=== PATIENT | male | born 1985 | race American Indian/Alaskan Native ===

== ENCOUNTER 2019-03-28 21:10 | Emergency (ER) | payer BC ==
[2019-03-29] MEDS ORDERED: NACL 0.9% 1000 ML 1,000 ML IV ONE (01:37)
[2019-03-29] MEDS ORDERED: ZOFRAN IV ONE (01:38)
[2019-03-29] MEDS ORDERED: PEPCID IV ONE (01:38)
[2019-03-29 02:57] LABS: Hemoglobin 14.2 gm/dl (11.8-15.2); Red Blood Count 5.21 M/mm3 (3.65-5.03)
[2019-03-29 02:58] LABS: Alanine Aminotransferase 19 units/L (7-56); Albumin 3.9 g/dL (3.9-5); BUN/Creatinine Ratio 14; Basophils # (Auto) 0.1 K/mm3 (0.0-0.1); Basophils % (Auto) 0.5 % (0.0-1.8); Blood Urea Nitrogen 13 mg/dL (9-20); Calcium 9.6 mg/dL (8.4-10.2); Eosinophils % (Auto) 0.4 % (0.0-4.3); Hematocrit 42.8 % (35.5-45.6); Hemolysis Index 10; Lymphocytes # (Auto) 3.2 K/mm3 (1.2-5.4); Lymphocytes % (Auto) 31.5 % (13.4-35.0); Mean Corpuscular HGB Conc 33 % (32-34); Mean Corpuscular Volume 82 fl (84-94); Monocytes # (Auto) 0.7 K/mm3 (0.0-0.8); Monocytes % (Auto) 6.5 % (0.0-7.3); Platelet Count 392 K/mm3 (140-440); Red Cell Distribution Width 13.8 % (13.2-15.2)
--- NOTE | 2019-03-29 04:04 | Emergency Department Report ---
ED Abdominal Pain HPI - General Chief Complaint: Abdominal Pain Stated Complaint: Nausea, vomiting, diarrhea and abdominal pain Time Seen by Provider: 03/29/19 01:20 Source: patient - History of Present Illness Initial Comments: Patient is a 33-year-old -Surinamese male with no past medical history presents to the ED with complaint of acute onset of persistent epigastric and left upper quadrant pain. Persistent nausea and vomiting and diarrhea for the last 4 days. Patient states that the pain in the epigastric area is burning and sharp and that he keeps burping in between nausea and vomiting. Patient denies chest pain, shortness of breath, dizziness, hematuria, dysuria, urinary frequency and urgency, sore throat, headache, change in vision, lightheadedness or hematochezia. MD Complaint: abdominal pain, other (Nausea and vomiting) -: Sudden, days(s) (4) Location: LUQ, epigastric Radiation: none Migration to: no migration Severity: severe Severity scale (0 -10): 7 Quality: aching, sharp, burning Consistency: constant Improves With: nothing Worsens With: vomiting Context: possible food poisoning Associated Symptoms: nausea, vomiting. denies: diarrhea, fever, chills, constipation, dysuria, hematemesis, hematochezia, melena, anorexia, syncope - Related Data Previous Rx's Medication Instructions Recorded Last Taken Type Dicyclomine [Bentyl] 20 mg PO Q6H PRN #20 tablet 03/29/19 Unknown Rx Ondansetron [Zofran Odt] 4 mg PO Q6HR PRN #15 tab.rapdis 03/29/19 Unknown Rx Ranitidine HCl [Zantac] 150 mg PO Q12H #30 tablet 03/29/19 Unknown Rx metFORMIN [Glucophage] 500 mg PO Q12H #60 tablet 03/29/19 Unknown Rx Allergies Allergy/AdvReac Type Severity Reaction Status Date / Time No Known Allergies Allergy Verified 03/29/19 03:07 ED Review of Systems ROS: Stated complaint: Other details as noted in HPI Comment: All other systems reviewed and negative Constitutional: denies: chills, fever Eyes: denies: eye pain, eye discharge, vision change ENT: denies: ear pain, throat pain Respiratory: denies: cough, shortness of breath, wheezing Cardiovascular: denies: chest pain, palpitations Endocrine: no symptoms reported Gastrointestinal: abdominal pain, nausea, vomiting. denies: diarrhea, constipation, hematemesis, melena, hematochezia Genitourinary: denies: urgency, dysuria Musculoskeletal: denies: back pain, joint swelling, arthralgia Skin: denies: rash, lesions Neurological: denies: headache, weakness, paresthesias Psychiatric: denies: anxiety, depression Hematological/Lymphatic: denies: easy bleeding, easy bruising ED Past Medical Hx - Medications Home Medications: Home Medications Medication Instructions Recorded Confirmed Last Taken Type Dicyclomine [Bentyl] 20 mg PO Q6H PRN #20 tablet 03/29/19 Unknown Rx Ondansetron [Zofran Odt] 4 mg PO Q6HR PRN #15 tab.rapdis 03/29/19 Unknown Rx Ranitidine HCl [Zantac] 150 mg PO Q12H #30 tablet 03/29/19 Unknown Rx metFORMIN [Glucophage] 500 mg PO Q12H #60 tablet 03/29/19 Unknown Rx ED Physical Exam - General General appearance: alert, in no apparent distress - Head Head exam: Present: atraumatic, normocephalic, normal inspection - Eye Eye exam: Present: normal appearance, PERRL, EOMI. Absent: scleral icterus, conjunctival injection, nystagmus Pupils: Present: normal accommodation - ENT ENT exam: Present: normal exam, normal orophraynx, mucous membranes moist, TM's normal bilaterally, normal external ear exam - Neck Neck exam: Present: normal inspection, full ROM - Respiratory Respiratory exam: Present: normal lung sounds bilaterally. Absent: respiratory distress, wheezes, rales, rhonchi, chest wall tenderness, accessory muscle use, decreased breath sounds, prolonged expiratory - Cardiovascular Cardiovascular Exam: Present: regular rate, normal rhythm, normal heart sounds. Absent: systolic murmur, diastolic murmur, rubs, gallop - GI/Abdominal GI/Abdominal exam: Present: soft, tenderness (epigastric and LUQ), normal bowel sounds. Absent: distended, hyperactive bowel sounds, hypoactive bowel sounds - Rectal Rectal exam: Present: deferred - Extremities Exam Extremities exam: Present: normal inspection, full ROM, normal capillary refill - Back Exam Back exam: Present: normal inspection, full ROM. Absent: tenderness, CVA t enderness (R), CVA tenderness (L), muscle spasm, paraspinal tenderness - Neurological Exam Neurological exam: Present: alert, oriented X3, CN II-XII intact, normal gait, reflexes normal - Psychiatric Psychiatric exam: Present: normal affect, normal mood - Skin Skin exam: Present: warm, dry, intact, normal color. Absent: rash ED Course - Reevaluation(s) Reevaluation #1: 03/29/19 05:07 Patient is alert and oriented 3 and is not in distress. Lab test results were reviewed and are unremarkable except for hyperglycemia of 329 mg/dL. The patient received treatment for nausea and vomiting and also given antacids and pain medications in the ED for abdominal pain. Patient is received 1 L normal saline IV bolus. On reevaluation, the patient's epigastric pain resolved, and the recheck of his blood glucose prior to discharge revealed a blood glucose level or 252 mg/dL. Patient denies any history of diabetes. Patient was discharged home on medications including metformin 500mg Q12H with food and given a referral to the [facility] for follow-up. Patient advised to return to the ED immediately if symptoms get worse. ED Medical Decision Making - Lab Data Result diagrams: 03/29/19 01:59 03/29/19 01:59 - Medical Decision Making Patient is alert and oriented 3 and is not in distress. Lab test results were reviewed and are unremarkable except for hyperglycemia of 329 mg/dL. The patient received treatment for nausea and vomiting and also given antacids and pain medications in the ED for abdominal pain. Patient is received 1 L normal saline IV bolus. On reevaluation, the patient's epigastric pain resolved, and the recheck of his blood glucose prior to discharge revealed a blood glucose level or 252 mg/dL. Patient denies any history of diabetes. Patient was discharged home on medications including metformin 500mg Q12H with food and given a referral to the [facility] for follow-up. Patient advised to return to the ED immediately if symptoms get worse. - Differential Diagnosis Nausea, vomiting and diarrhea; Viral Gastritis; GERD, Hyperglycemia Critical care attestation.: If time is entered above; I have spent that time in minutes in the direct care of this critically ill patient, excluding procedure time. ED Disposition Clinical Impression: Acute hyperglycemia, Nausea and vomiting in adult, Abdominal pain in male Gastritis Qualifiers: Gastritis type: unspecified gastritis Chronicity: acute Gastritis bleeding: without bleeding Qualified Code(s): K29.00 - Acute gastritis without bleeding GERD (gastroesophageal reflux disease) Qualifiers: Esophagitis presence: without esophagitis Qualified Code(s): K21.9 - Gastro- esophageal reflux disease without esophagitis Disposition: TO HOME OR SELFCARE Is pt being admited?: No Does the pt Need Aspirin: No Condition: Stable Instructions: Diabetic Hyperglycemia (ED), Acute Nausea and Vomiting (ED), Gastritis (ED), Gastroesophageal Reflux Disease (ED) Additional Instructions: Take medications with food, drink plenty of fluids and follow-up with your primary care physician is advised in 3-5 days for reevaluation. Return to the ED immediately if symptoms get worse. Prescriptions: Dicyclomine [Bentyl] 20 mg PO Q6H PRN #20 tablet PRN Reason: Pain , Severe (7-10) metFORMIN [Glucophage] 500 mg PO Q12H #60 tablet Ranitidine HCl [Zantac] 150 mg PO Q12H #30 tablet Ondansetron [Zofran Odt] 4 mg PO Q6HR PRN #15 tab.rapdis PRN Reason: Nausea Referrals: MELI LANGLEY MD [Primary Care Provider] - 3-5 Days [facility] [Outside] - 3-5 Days Time of Disposition: 05:16 Print Language: AUSTRIAN
[2019-03-29 05:30] VITALS: BP 131/81
== END 2019-03-29 05:30 | disposition home or self-care (01) ==
LOC: ED 21:10
DX: R73.9 Hyperglycemia, unspecified (principal); K21.9 Gastro-esophageal reflux disease without esophagitis; K29.00 Acute gastritis without bleeding
CPT/HCPCS: 36415; 80053; 82962; 83690; 85025; 96361; 96374; 96375; 99283; J2405; J7030

== ENCOUNTER 2019-04-11 08:13 | Outpatient (CLI) | payer BC ==
[2019-04-11 20:21] LABS: Chol/HDL Ratio 3.21 %
[2019-04-14 11:27] LABS: Vitamin D, 25-OH, D2 <4 ng/mL
== END 2019-04-11 08:14 | disposition home or self-care (01) ==
LOC: LAB 08:13
PROVIDERS: ATTEND Internal Medicine
DX: Z13.220 Encounter for screening for lipoid disorders (principal); Z13.21 Encounter for screening for nutritional disorder; E11.65 Type 2 diabetes mellitus with hyperglycemia; E66.01 Morbid (severe) obesity due to excess calories; K21.9 Gastro-esophageal reflux disease without esophagitis
CPT/HCPCS: 36415; 80061; 82306; 82607; 83036; 84443

== ENCOUNTER 2019-08-04 08:20 | Outpatient (CLI) | payer BC ==
[2019-08-04 11:02] LABS: Chol/HDL Ratio 3.19 %
== END 2019-08-04 08:21 | disposition home or self-care (01) ==
LOC: LAB 08:20
PROVIDERS: ATTEND Internal Medicine
DX: Z13.220 Encounter for screening for lipoid disorders (principal); E11.65 Type 2 diabetes mellitus with hyperglycemia; E66.01 Morbid (severe) obesity due to excess calories
CPT/HCPCS: 36415; 80061; 83036

== ENCOUNTER 2020-06-18 02:45 | Emergency (ER) | payer BC ==
[2020-06-18] MEDS ORDERED: ASPIRIN 325 MG TAB PO ONE (03:29)
--- NOTE | 2020-06-18 04:04 | XRay Report ---
CHEST 1 VIEW INDICATION: Chest Pain. COMPARISON: None. FINDINGS: Support devices: None. Heart: Within normal limits. Lungs/Pleura: No acute air space or interstitial disease. Additional findings: None. IMPRESSION: No acute abnormality. Signer Name: Panfilo Johnston MD Signed: 06/18/2020 4:00 AM Workstation Name: [id number]
[2020-06-18 04:23] LABS: Basophils # (Auto) 0.1 K/mm3 (0.0-0.1); Basophils % (Auto) 0.8 % (0.0-1.8); Eosinophils # (Auto) 0.2 K/mm3 (0.0-0.4); Eosinophils % (Auto) 1.8 % (0.0-4.3); Hematocrit 41.4 % (35.5-45.6); Hemoglobin 13.3 gm/dl (11.8-15.2); Lymphocytes # (Auto) 4.4 K/mm3 (1.2-5.4); Lymphocytes % (Auto) 32.8 % (13.4-35.0); Mean Corpuscular HGB Conc 32 % (32-34); Mean Corpuscular Volume 83 fl (84-94); Monocytes # (Auto) 0.8 K/mm3 (0.0-0.8); Monocytes % (Auto) 6.3 % (0.0-7.3); Platelet Count 385 K/mm3 (140-440); Red Cell Distribution Width 13.6 % (13.2-15.2)
[2020-06-18 04:35] LABS: BUN/Creatinine Ratio 21; Blood Urea Nitrogen 23 mg/dL (9-20); Calcium 9.7 mg/dL (8.4-10.2); Hemolysis Index 5
--- NOTE | 2020-06-18 06:27 | Emergency Department Report ---
ED Chest Pain HPI - General Chief Complaint: Chest Pain Stated Complaint: CHEST PAIN, DIZZY Time Seen by Provider: 06/18/20 06:11 Source: patient Mode of arrival: Ambulatory Limitations: No Limitations - History of Present Illness Initial Comments: This is a 34-year-old -Citizen Of [place] male presented to the emergency department last night with a complaint of some chest pain and shortness of breath. The chest pain was generalized. He denies any fever, nausea, vomiting, back pain, coughing, wheezing or diaphoresis. The patient got home from work l ast night, ate some food, and then smoked marijuana. It has been a while since he has smoked marijuana and as soon as he smoked the symptoms began. At the time of my examination this morning the patient is asymptomatic. He has a past medical history of aha-[id number] diabetes on metformin and a questionable history of hypertension. He did present with extremely elevated blood pressure but it is down to a more reasonable level without any treatment and the patient says he is not on any medications for hypertension. He does have a family history of early cardiac disease in which his father had a heart attack in his 40s. No recent travel or sick contacts at home. He denies any tobacco use. Severity scale (0 -10): 4 - Related Data Previous Rx's Medication Instructions Recorded Last Taken Type Dicyclomine [Bentyl] 20 mg PO Q6H PRN #20 tablet 03/29/19 Unknown Rx Ondansetron [Zofran Odt] 4 mg PO Q6HR PRN #15 tab.rapdis 03/29/19 Unknown Rx metFORMIN [Glucophage] 500 mg PO Q12H #60 tablet 03/29/19 Unknown Rx raNITIdine HCl [Zantac] 150 mg PO Q12H #30 tablet 03/29/19 Unknown Rx Allergies Allergy/AdvReac Type Severity Reaction Status Date / Time No Known Allergies Allergy Verified 03/29/19 03:07 Heart Score - HEART Score History: Slightly suspicious EKG: Normal Age: < 45 Risk factors: > 3 risk factors or hx of atherosclerotic disease Troponin: < normal limit HEART Score: 2 - Critical Actions Critical Actions: 0-3 pts:0.9-1.7%risk of adverse cardiac event.Candidate for discharge ED Review of Systems ROS: Stated complaint: CHEST PAIN, DIZZY Other details as noted in HPI Comment: All other systems reviewed and negative Constitutional: denies: chills, fever Eyes: denies: eye pain, vision change ENT: denies: ear pain, throat pain Respiratory: shortness of breath. denies: cough Cardiovascular: chest pain. denies: palpitations Gastrointestinal: denies: abdominal pain, vomiting Genitourinary: denies: dysuria, discharge Musculoskeletal: denies: back pain, arthralgia Skin: denies: rash, lesions Neurological: denies: headache, weakness ED Past Medical Hx - Past Medical History Previous Medical History?: Yes Hx Hypertension: Yes Hx Diabetes: Yes - Surgical History Past Surgical History?: No - Social History Smoking Status: Never Smoker Substance Use Type: Marijuana - Medications Home Medications: Home Medications Medication Instructions Recorded Confirmed Last Taken Type Dicyclomine [Bentyl] 20 mg PO Q6H PRN #20 tablet 03/29/19 Unknown Rx Ondansetron [Zofran Odt] 4 mg PO Q6HR PRN #15 tab.rapdis 03/29/19 Unknown Rx metFORMIN [Glucophage] 500 mg PO Q12H #60 tablet 03/29/19 Unknown Rx raNITIdine HCl [Zantac] 150 mg PO Q12H #30 tablet 03/29/19 Unknown Rx ED Physical Exam - General Limitations: No Limitations - Other Other exam information: GENERAL: The patient is well-developed well-nourished. HENT: Normocephalic. Atraumatic. Patient has moist mucous membranes. EYES: Extraocular motions are intact. Pupils equal reactive to light bilaterally. NECK: Supple. Trachea is midline. CHEST/LUNGS: Clear to auscultation. There is no respiratory distress noted. There is some reproducible chest pain to palpation of the chest wall. HEART/CARDIOVASCULAR: Regular. There is no tachycardia. There is no murmur. ABDOMEN: Abdomen is soft, nontender. Patient has normal bowel sounds. Obese habitus. SKIN: Skin is warm and dry. NEURO: The patient is awake, alert, and oriented. The patient is cooperative. Normal speech. MUSCULOSKELETAL: There is no tenderness or deformity. There is no limitation range of motion. ED Course Vital Signs 06/18/20 06/18/20 06/18/20 02:48 02:49 03:58 Temperature 98.1 F 98.5 F Pulse Rate 132 H 128 H 104 H Respiratory 20 19 Rate Blood Pressure 220/137 Blood Pressure 175/106 [Left] O2 Sat by Pulse 100 100 Oximetry 06/18/20 06/18/20 06/18/20 04:03 04:57 06:40 Temperature Pulse Rate 85 87 Respiratory 18 17 17 Rate Blood Pressure Blood Pressure 145/82 147/107 [Left] O2 Sat by Pulse 99 98 Oximetry LIZETTE score - Lizette Score Age > 65: (0) No Aspirin use within the Past 7 Days: (0) No 3 or more CAD Risk Factors: (0) No 2 or more Angina events in past 24 hrs: (1) Yes Known CAD with more than 50% Stenosis: (0) No Elevated Cardiac Markers: (0) No ST Deviation Greater than 0.5mm: (0) No LIZETTE Score: 1 ED Medical Decision Making - Lab Data Result diagrams: 06/18/20 03:35 06/18/20 03:35 - EKG Data -: EKG Interpreted by Me EKG shows normal: sinus rhythm, axis, intervals, QRS complexes, ST-T waves Rate: tachycardia (127 bpm) - EKG Data When compared to previous EKG there are: previous EKG unavailable Interpretation: other (Sinus tachycardia. Normal axis and intervals. No STEMI) - Radiology Data Radiology results: image reviewed interpreted by me: Chest x-ray does not show any acute process. There are no pleural effusions, obvious pneumonia and there is no pneumothorax. No significant cardiomegaly. - Medical Decision Making This patient presented to the emergency department with a complaint of chest pain after smoking marijuana this evening. EKG does not have any morphology consistent with ST elevation TN or any dysrhythmia. Chest x-ray does not show any pneumonia, pleural effusions, pneumothorax, focal consolidation, or any other acute process. Patient's labs have been mostly unremarkable including CBC, metabolic panel, and negative troponins x2. Patient did have an elevated serum blood sugar of about 450 but it came down to about 330 on Accu-Chek without any treatment given and the patient has yet to take his metformin for the day. He was reevaluated multiple times over multiple hours and is feeling improved. He has a low heart and LIZETTE score. He is low on the Wells score criteria and does not have any obvious risk factors for thromboembolic disease. For all these reasons the patient appears safe for discharge home at this time. His contact information has been sent over to the [facility], and someone from their office should be contacting him shortly for close outpatient follow-up as part of our [facility] low risk chest pain protocol. He will return to the ER with any worsening of his symptoms or with any acute distress. Critical Care Time: No Critical care attestation.: If time is entered above; I have spent that time in minutes in the direct care of this critically ill patient, excluding procedure time. ED Disposition Clinical Impression: Elevated blood pressure reading Chest pain Qualifiers: Chest pain type: unspecified Qualified Code(s): R07.9 - Chest pain, unspecified Disposition: DC- TO HOME OR SELFCARE Is pt being admited?: No Condition: Stable Instructions: Chest Pain (ED), Hypertension (ED) Additional Instructions: Please follow-up with a primary care physician in the next few days. Please avoid any further marijuana or any tobacco use. I am sending your contact information to [facility] and someone from their office should be contacting you shortly for close outpatient follow-up regarding your chest pain. I am also giving you a referral for Dr Ramey, 1 of the cardiologists from that practice. Try and stay away from foods that are high in salt and caffeinated products. Keep a blood pressure log. Return to the emergency department with any return of your chest pain, worsening of your symptoms, or with any acute distress. Referrals: PRIMARY CAREMD [Primary Care Provider] - 2-3 Days SAGRARIO RAMEY MD [Staff Physician] - 2-3 Days MELI LANGLEY MD [Staff Physician] - 2-3 Days [facility] [Provider Group] - 2-3 Days Time of Disposition: 08:13
[2020-06-18 06:41] VITALS: BP 147/107
== END 2020-06-18 08:43 | disposition home or self-care (01) ==
LOC: ED 02:45
DX: R07.89 Other chest pain (principal); I10 Essential (primary) hypertension; E11.9 Type 2 diabetes mellitus without complications; F12.10 Cannabis abuse, uncomplicated; Z79.84 Long term (current) use of oral hypoglycemic drugs; Z79.899 Other long term (current) drug therapy
CPT/HCPCS: 36415; 71045; 80048; 82962; 84484; 85025; 93005

== ENCOUNTER 2021-03-15 11:06 | Emergency (ER) | payer BC ==
[2021-03-15 13:14] VITALS: BP 153/107
[2021-03-15] MEDS ORDERED: ONDANSETRON 4 MG ODT TAB PO ONE (14:56)
--- NOTE | 2021-03-15 15:01 | Emergency Department Report ---
ED General Adult HPI - General Chief complaint: Hyperglycemia Stated complaint: POSSIBLE HIGH BLOOD SUGAR/VOMITTING Source: patient Mode of arrival: Ambulatory Limitations: No Limitations - History of Present Illness Initial comments: 35-year-old male with a known history of vkd-sqsblrz-fbnzvsyxa diabetes and hypertension. He states that for the last week every morning when he gets up he vomits and is sometimes associated with diarrhea. It is usually one episode of diarrhea. Patient states recently he has been having urinary frequency and thirst. He saw Dr. Carola Cuellar yesterday and he was started on Farxiga. He is currently taking Metformin and losartan for his blood pressure. Patient denies cough he has no fever he also states that this morning when he checked his blood sugar with his machine at home the machine read in error so patient was concerned that his blood sugar may be high. He is alert and oriented and in no acute distress -: This morning Associated Symptoms: denies other symptoms. denies: confusion, chest pain, cough, diaphoresis, fever/chills, headaches, loss of appetite, malaise, shortness of breath, syncope, weakness Treatments Prior to Arrival: none - Related Data Previous Rx's Medication Instructions Recorded Last Taken Type Dicyclomine [Bentyl] 20 mg PO Q6H PRN #20 tablet 03/29/19 Unknown Rx Ondansetron [Zofran Odt] 4 mg PO Q6HR PRN #15 tab.rapdis 03/29/19 Unknown Rx metFORMIN [Glucophage] 500 mg PO Q12H #60 tablet 03/29/19 Unknown Rx raNITIdine HCl [Zantac] 150 mg PO Q12H #30 tablet 03/29/19 Unknown Rx Ondansetron [Zofran Odt] 4 mg PO Q6H PRN #12 tab.rapdis 03/15/21 Unknown Rx Allergies Allergy/AdvReac Type Severity Reaction Status Date / Time No Known Allergies Allergy Verified 03/15/21 13:13 ED Review of Systems ROS: Stated complaint: POSSIBLE HIGH BLOOD SUGAR/VOMITTING Other details as noted in HPI Comment: All other systems reviewed and negative Constitutional: no symptoms reported Eyes: denies: eye pain, eye discharge, vision change ENT: denies: throat pain, dental pain, hearing loss, epistaxis Respiratory: denies: cough, shortness of breath, SOB with exertion, wheezing Cardiovascular: denies: chest pain Gastrointestinal: vomiting, diarrhea (Loose stools off and on). denies: as per HPI, abdominal pain, nausea Genitourinary: frequency. denies: dysuria, discharge, testicular pain Neurological: denies: headache, weakness, numbness, paresthesias Psychiatric: denies: anxiety, depression, auditory hallucinations, visual hallucinations, homicidal thoughts ED Past Medical Hx - Past Medical History Hx Hypertension: Yes Hx Diabetes: Yes - Social History Smoking Status: Never Smoker Substance Use Type: Marijuana - Medications Home Medications: Home Medications Medication Instructions Recorded Confirmed Last Taken Type Dicyclomine [Bentyl] 20 mg PO Q6H PRN #20 tablet 03/29/19 Unknown Rx Ondansetron [Zofran Odt] 4 mg PO Q6HR PRN #15 tab.rapdis 03/29/19 Unknown Rx metFORMIN [Glucophage] 500 mg PO Q12H #60 tablet 03/29/19 Unknown Rx raNITIdine HCl [Zantac] 150 mg PO Q12H #30 tablet 03/29/19 Unknown Rx Ondansetron [Zofran Odt] 4 mg PO Q6H PRN #12 tab.rapdis 03/15/21 Unknown Rx ED Physical Exam - General Limitations: No Limitations General appearance: alert, in no apparent distress - Head Head exam: Present: atraumatic - Eye Eye exam: Present: normal appearance. Absent: scleral icterus - ENT ENT exam: Present: normal exam, mucous membranes moist - Neck Neck exam: Present: normal inspection - Respiratory Respiratory exam: Present: normal lung sounds bilaterally. Absent: respiratory distress, wheezes - Cardiovascular Cardiovascular Exam: Present: regular rate, normal heart sounds - GI/Abdominal GI/Abdominal exam: Present: soft. Absent: distended - Neurological Exam Neurological exam: Present: alert, oriented X3 - Psychiatric Psychiatric exam: Present: normal affect - Skin Skin exam: Present: warm, dry, intact ED Course Vital Signs 03/15/21 13:13 Temperature 98.6 F Pulse Rate 97 H Respiratory 14 Rate Blood Pressure 153/107 [Left] O2 Sat by Pulse 100 Oximetry - Reevaluation(s) Reevaluation #1: 03/15/21 15:05 Patient is currently not vomiting he denies nausea at this time he is in no distress we are awaiting lab results ED Medical Decision Making - Lab Data Result diagrams: 03/15/21 14:45 05/29/21 14:45 - Medical Decision Making 35-year-old male with a known history of diabetes and hypertension. He reports a 2 weeks of vomiting once in the morning. He was seen by his primary care doctor yesterday and Farxiga was added to his medication regimen. This morning however patient states that his Accu-Chek machine read error so he was concerned that his blood sugar was high. He also states that his nose noticed increase thirst and urination. Fingerstick glucose upon arrival to the ER was 94 Critical Care Time: No Critical care attestation.: If time is entered above; I have spent that time in minutes in the direct care of this critically ill patient, excluding procedure time. ED Disposition Clinical Impression: Vomiting Qualifiers: Vomiting type: unspecified Vomiting Intractability: unspecified Nausea presence: without nausea Qualified Code(s): R11.11 - Vomiting without nausea Disposition: TO HOME OR SELFCARE Is pt being admited?: No Does the pt Need Aspirin: No Condition: Stable Instructions: Vomiting, Adult Additional Instructions: Continue to take your medications as usual please follow-up with Dr. Carola Cuellar on Wednesday or return to the emergency room for any worsening symptoms such as fever inability to keep food down diarrhea or high blood sugar. Today your blood sugar was 106 you had no signs of urinary tract infection and no other signs of dehydration Prescriptions: Ondansetron [Zofran Odt] 4 mg PO Q6H PRN #12 tab.rapdis PRN Reason: Nausea And Vomiting Referrals: MELI LANGLEY MD [Staff Physician] - 3-5 Days Time of Disposition: 15:46
[2021-03-15 15:14] LABS: Basophils # (Auto) 0.1 K/mm3 (0.0-0.1); Hematocrit 45.4 % (35.5-45.6); Hemoglobin 15.2 gm/dl (11.8-15.2); Lymphocytes # (Auto) 1.9 K/mm3 (1.2-5.4); Lymphocytes % (Auto) 18.2 % (13.4-35.0); Mean Corpuscular HGB Conc 34 % (32-34); Mean Corpuscular Volume 84 fl (84-94); Monocytes # (Auto) 0.5 K/mm3 (0.0-0.8); Monocytes % (Auto) 4.7 % (0.0-7.3); Platelet Count 413 K/mm3 (140-440); Red Cell Distribution Width 14.9 % (13.2-15.2)
[2021-03-15 15:28] LABS: Alanine Aminotransferase 30 units/L (7-56); Albumin 4.5 g/dL (3.9-5); BUN/Creatinine Ratio 13; Blood Urea Nitrogen 14 mg/dL (9-20); Hemolysis Index 7
[2021-03-15 15:34] LABS: Bilirubin,Urine NEG (Negative); Blood,Urine NEG (Negative); Color,Urine Straw (Yellow); Protein,Urine <15 mg/dL mg/dL (Negative); Urobilinogen,Urine < 2.0 mg/dL (<2.0); WBC,Urine < 1.0 /HPF (0.0-6.0)
== END 2021-03-15 16:24 | disposition home or self-care (01) ==
LOC: ED 11:06
DX: R11.10 Vomiting, unspecified (principal); I10 Essential (primary) hypertension; E11.9 Type 2 diabetes mellitus without complications; F12.10 Cannabis abuse, uncomplicated; Z79.899 Other long term (current) drug therapy; Z79.84 Long term (current) use of oral hypoglycemic drugs
CPT/HCPCS: 36415; 80053; 81001; 82962; 83690; 85025

== ENCOUNTER 2021-05-20 08:46 | Outpatient (CLI) | payer BC ==
[2021-05-20 09:27] LABS: Basophils # (Auto) 0.1 K/mm3 (0.0-0.1); Basophils % (Auto) 0.7 % (0.0-1.8); Eosinophils # (Auto) 0.2 K/mm3 (0.0-0.4); Eosinophils % (Auto) 2.3 % (0.0-4.3); Hemoglobin 14.8 gm/dl (11.8-15.2); Mean Corpuscular HGB Conc 33 % (32-34); Mean Corpuscular Volume 85 fl (84-94); Monocytes # (Auto) 0.7 K/mm3 (0.0-0.8); Monocytes % (Auto) 9.4 % (0.0-7.3); Platelet Count 395 K/mm3 (140-440); Red Blood Count 5.32 M/mm3 (3.65-5.03); Red Cell Distribution Width 14.6 % (13.2-15.2)
[2021-05-20 09:29] LABS: Alanine Aminotransferase 16 units/L (7-56); Albumin 4.3 g/dL (3.9-5); BUN/Creatinine Ratio 16; Blood Urea Nitrogen 14 mg/dL (9-20); Calcium 9.7 mg/dL (8.4-10.2); Hemolysis Index 11
[2021-05-20 10:52] LABS: Bilirubin,Urine NEG (Negative); Blood,Urine NEG (Negative); Color,Urine Yellow (Yellow); Mucus,Urine FEW /HPF; Protein,Urine <15 mg/dL mg/dL (Negative); WBC,Urine < 1.0 /HPF (0.0-6.0)
--- NOTE | 2021-05-20 13:35 | Ultrasound Report ---
ULTRASOUND RENAL INDICATION / CLINICAL INFORMATION: ABDOMINAL PAIN. COMPARISON: None available. FINDINGS: RIGHT KIDNEY: Size (in cm): 11.1 - Echogenicity: Normal. - Cortical Thickness: Normal. - Hydronephrosis: None. - Cyst or mass: No significant abnormality. - Stones: 6 mm echogenic focus within the mid to lower pole of the right kidney likely reflects nonob structive renal stone. LEFT KIDNEY: Size (in cm): 11.1 - Echogenicity: Normal. - Cortical Thickness: Normal. - Hydronephrosis: None. - Cyst or mass: 1.3 cm cystic structure with thin internal septation noted within the medial lower po le of the left kidney. - Stones: None seen. URINARY BLADDER: No significant abnormality. FREE FLUID: None. ADDITIONAL FINDINGS: None. IMPRESSION: 1. No acute abnormality of the kidneys. 2. 6 mm nonobstructive renal stone on the right. No hydronephrosis. 3. Minimally complex left renal cyst. Signer Name: Philipp Bello MD Signed: 05/20/2021 1:30 PM Workstation Name: [id number]
== END 2021-05-20 08:47 | disposition home or self-care (01) ==
LOC: US 08:46
PROVIDERS: ATTEND Internal Medicine
DX: N28.1 Cyst of kidney, acquired (principal); E11.65 Type 2 diabetes mellitus with hyperglycemia; N39.0 Urinary tract infection, site not specified
CPT/HCPCS: 36415; 76770; 80053; 81001; 85025